=== PATIENT | female | born 1995 | race Caucasian/White ===

== ENCOUNTER 2019-03-28 08:49 | Emergency (ER) | payer OTHER ==
[2019-03-28] MEDS ORDERED: NORMAL SALINE 1000 ML 1,000 ML IV ONE (09:32)
[2019-03-28] MEDS ORDERED: KETOROLAC TROMETHAMINE INJ/PF 30 MG/1 ML SDV IV ONE (09:35)
[2019-03-28 10:09] LABS: APPEARANCE,URINE CLEAR; BILIRUBIN,URINE NEGATIVE (NEGATIVE); COLOR,URINE YELLOW; GLUCOSE, URINE NEGATIVE (NEGATIVE); KETONES,URINE 20 mg/dL (NEGATIVE); LEUKOCYTE ESTERASE,URINE NEGATIVE (NEGATIVE); NITRITE,URINE NEGATIVE (NEGATIVE); PROTEIN,URINE NEGATIVE (NEGATIVE); URINE SPECIFIC GRAVITY 1.018; UROBILINOGEN,URINE NEGATIVE mg/dL (<2.0)
[2019-03-28 10:16] LABS: HEMATOCRIT 41.1 % (36.0-47.0); HEMOGLOBIN 13.9 g/dL (12.0-15.5); MEAN CORPUSCULAR HEMOGLOBIN 29.7 pg (27.0-33.4); MEAN CORPUSCULAR HGB CONC 33.9 g/dL (32.0-36.0); MEAN CORPUSCULAR VOLUME 88 fl (80-97); PLATELET COUNT 184 10^3/uL (150-450); RED BLOOD COUNT 4.69 10^6/uL (3.72-5.28); RED CELL DISTRIBUTION WIDTH 13.5 % (11.5-14.0)
[2019-03-28 10:34] LABS: ABSOLUTE LYMPHOCYTES# (MANUAL) 0.5 10^3/uL (0.5-4.7); ABSOLUTE MONOCYTES # (MANUAL) 0.9 10^3/uL (0.1-1.4); ABSOLUTE NEUTROPHILS# (MANUAL) 8.6 10^3/uL (1.7-8.2); BAND NEUTROPHILS % (MANUAL) 2 % (3-5); BASOPHILS % (MANUAL) 0 % (0-2); EOSINOPHILS % (MANUAL) 0 % (0-6); LYMPHOCYTES % (MANUAL) 4 % (13-45); MONOCYTES % (MANUAL) 9 % (3-13); PLATELET COMMENT ADEQUATE; RBC MORPHOLOGY COMMENT NORMO-CYTIC/CHROMIC; SEGMENTED NEUTROPHILS % (MAN) 84 % (42-78); TOTAL CELLS COUNTED 100
[2019-03-28 10:47] LABS: ALANINE AMINOTRANSFERASE 17 U/L (9-52); ALBUMIN 4.6 g/dL (3.5-5.0); ALKALINE PHOSPHATASE 76 U/L (38-126); ANION GAP 16 (5-19); ASPARTATE AMINO TRANSFERASE 23 U/L (14-36); BILIRUBIN,DIRECT 0.3 mg/dL (0.0-0.4); BILIRUBIN,TOTAL 0.8 mg/dL (0.2-1.3); BLOOD UREA NITROGEN 12 mg/dL (7-20); CARBON DIOXIDE 20 mmol/L (22-30); CHLORIDE 104 mmol/L (98-107); GLUCOSE 99 mg/dL (75-110); POTASSIUM 4.4 mmol/L (3.6-5.0); SODIUM 139.9 mmol/L (137-145); TOTAL PROTEIN 8.1 g/dL (6.3-8.2)
--- NOTE | 2019-03-28 12:00 | ER Document Report ---
ED General - General Chief Complaint: Back Pain Stated Complaint: BACK GOLDEN Time Seen by Provider: 03/28/19 09:18 Primary Care Provider: [facility] [NO LOCAL MD] - Follow up as needed Mode of Arrival: Ambulatory Notes: Patient is a 24-year-old female comes emergency room complaining of right hip pain and fever. Patient states that on Monday this past week she was at work and she was sitting on her left leg with her right leg extended down on the floor. She went to get up to go to the bathroom and when she stood up on her right leg she felt a pop or click in her right buttocks. She states she got lightheaded and dizzy and nearly fell. The pain intensified over the course of the rest the afternoon and she had difficulty ambulating so she asked coworkers which she should do any toe to go to a chiropractor. She went to a chiropractor on Monday and he did x-rays and did an adjustment on her and stated that her alignment looked okay but she probably tore a muscle in that area. She went back this morning for a second adjustment and it was so painful she was unable to handle the full treatment. Because overnight she also spiked a fever and she had a sore throat she decided to come to the emergency room. Patient complained also of headache. Patient denies any loss of urine or stool she denies any back pain. Her pain is solely in her right buttocks. Patient also informed me that she is on Depo-Provera and has not had a. Since she stopped the Depakote in September. She also informs me that she has had strep pharyngitis 3 times this year. TRAVEL OUTSIDE OF THE [place] IN LAST 30 DAYS: No - HPI Onset: Other - 3 days ago Onset/Duration: Sudden, Persistent, Worse Quality of pain: Burning, Cramping, Sharp, Stabbing, Throbbing Severity: Severe Pain Level: 4 Associated symptoms: Body/muscle aches, Earache, Fever, Nausea, Sore throat Exacerbated by: Supine, Sitting, Standing, Movement, Walking, Coughing, Deep breathing, Food Relieved by: Denies Similar symptoms previously: Yes Recently seen / treated by doctor: Yes - Related Data Allergies/Adverse Reactions: No Known Allergies Allergy (Verified 03/28/19 09:01) Past Medical History - General Information source: Patient - Social History Smoking Status: Never Smoker Cigarette use (# per day): No Chew tobacco use (# tins/day): No Smoking Education Provided: No Frequency of alcohol use: None Drug Abuse: None Lives with: Family Family History: Reviewed & Not Pertinent Patient has suicidal ideation: No Patient has homicidal ideation: No Renal/ Medical History: Denies: Hx Peritoneal Dialysis Review of Systems - Review of Systems Constitutional: See HPI, Chills, Fever, Weakness EENT: See HPI, Throat pain, Difficulty swallowing Cardiovascular: No symptoms reported Respiratory: No symptoms reported Gastrointestinal: No symptoms reported Genitourinary: No symptoms reported Female Genitourinary: No symptoms reported Musculoskeletal: See HPI, Back pain, Neck pain Skin: See HPI, Change in color Hematologic/Lymphatic: Enlarged lymph nodes, Swollen glands Neurological/Psychological: No symptoms reported -: Yes All other systems reviewed and negative Physical Exam - Vital signs Vitals: Temp Pulse Resp BP Pulse Ox 98.9 F 100 22 H 149/75 H 100 03/28/19 09:00 03/28/19 09:00 03/28/19 09:00 03/28/19 09:00 03/28/19 09:00 Interpretation: Hypertensive - Notes Notes: PHYSICAL EXAMINATION: GENERAL: Patient is a well-nourished well-developed 24-year-old female is in no apparent distress on physical exam today however she appears very teary and anxious showing moderate amount of pain and discomfort. HEAD: Atraumatic, normocephalic. EYES: Pupils equal round and reactive to light, extraocular movements intact, conjunctiva are normal. ENT: Examination patient's head and upper airway showed nasal mucosa to be erythematous and edematous with no rhinorrhea or congestion noted at this time. She displays no frontal maxillary sinus tenderness to palpation. Bilateral TMs appear normal with no air-fluid levels noted no retraction or bulging noted. Examination of the oral cavity shows posterior pharynx to show moderate amount of erythema bilateral tonsils are enlarged with exudate noted on each. Uvula is midline with erythema but no exudate. Airway is patent and there is no encroachment upon the uvula at this time. NECK: Normal range of motion. No meningismus. She does display moderate amount of bilateral anterior cervical lymphadenopathy to palpation. LUNGS: Breath sounds clear to auscultation bilaterally and equal. No wheezes rales or rhonchi. HEART: Regular rate and rhythm without murmurs emale : deferred Musculoskeletal: Examination patient's area of concern is her right buttocks. There is palpable discomfort on the right buttocks and the upper portion of the glue. There is no defect felt on palpation. There is straight leg raise positive when pressure is applied over the gluteus zeny. Further exploration and examination of the lumbar spine area shows no reproducible pain or tenderness. This extends from mid thoracic down patient has no tenderness. She has full range of motion without any deficits. She has bilateral normal DTRs. And her vascular exam is normal. NEUROLOGICAL: Normal speech, normal gait. Normal sensory, motor exams PSYCH: Normal mood, normal affect. SKIN: Warm, Dry, normal turgor, no rashes or lesions noted. Course - Re-evaluation Re-evalutation: 03/28/19 12:00 Patient's exam did not lead me into any area of structural problems. She had no fall and no signs or symptoms of a sciatic presentation. She had tenderness to palpation on the right gluteus zeny area. This is totally reproducible with palpation as well as resistance in different directions. Her presentation with headache and fever and a little neck discomfort and also did not lend itself to the picture of a meningitis kind of presentation. Oral examination showed the culprit of her fever and her headache which is a strep pharyngitis. She has a history that is escalating itself over the past year to the this will be her fourth time she has had strep pharyngitis. I have informed her she needs to follow-up with a surgeon at this point and see if she can have them removed. We will place her on amoxicillin 875 twice daily for 20 tablets[address] also place her on a low steroid taper secondary to the swelling of the tonsils. There is no airway compromise at this time. - Vital Signs Vital signs: Temp Pulse Resp BP Pulse Ox 99.0 F 104 H 18 118/61 97 03/28/19 14:10 03/28/19 14:10 03/28/19 14:10 03/28/19 14:10 03/28/19 14:10 - Laboratory Result Diagrams: 03/28/19 10:00 03/28/19 10:00 Laboratory results interpreted by me: 03/28/19 03/28/19 03/28/19 09:50 10:00 10:00 Seg Neuts % (Manual) 84 H Band Neutrophils % 2 L Lymphocytes % (Manual) 4 L Abs Neuts (Manual) 8.6 H Carbon Dioxide 20 L Urine Ketones 20 H Discharge - Discharge Clinical Impression: Strep throat, Muscle tear Strain of right hip Qualifiers: Encounter type: initial encounter Qualified Code(s): S76.011A - Strain of muscle, fascia and tendon of right hip, initial encounter Condition: Stable Disposition: HOME, SELF-CARE Instructions: Acetaminophen, Ice Packs ([facility]), Muscle Strain ([facility]), Oral Narcotic Medication ([facility]), Strep Throat ([facility]) Additional Instructions: Home and rest. Ice to the area 3 times a day as we discussed. Tylenol alternate with ibuprofen for pain and fever. Of also written for little pain medication and a muscle relaxer. Light stretching also as we discussed. I would stay with him a chiropractor at least for the next week. Should you have any concerns or problems return to ER for recheck. Use warm salt water gargles 3-4 times a day. Follow-up with a surgeon for evaluation since this is a fourth time with strep throat this year. Prescriptions: Amoxicillin Trihydrate [Amoxil 875 mg Tablet] 1 tab PO BID #20 tablet Cyclobenzaprine HCl [Flexeril 10 mg Tablet] 10 mg PO TID PRN #21 tablet PRN Reason: Fluconazole [Diflucan] 150 mg PO ONCE PRN #1 tablet PRN Reason: Prednisone 5 mg PO ASDIR PRN 6 Days #1 tab.ds.pk PRN Reason: Forms: Elevated Blood Pressure, Return to Work Referrals: [facility] [NO LOCAL MD] - Follow up as needed
[2019-03-28] MEDS ORDERED: IBUPROFEN 600 MG TABLET PO ONE (12:37)
[2019-03-28] MEDS ORDERED: ACETAMINOPHEN 325 MG TABLET PO ONE (12:37)
[2019-03-28 14:12] VITALS: BP 118/61
== END 2019-03-28 14:24 | disposition home or self-care (01) ==
LOC: ER 08:49
DX: S76.011A Strain of muscle, fascia and tendon of right hip, initial encounter (principal); J02.0 Streptococcal pharyngitis; M54.9 Dorsalgia, unspecified; R50.9 Fever, unspecified; R42 Dizziness and giddiness; R11.0 Nausea; X58.XXXA Exposure to other specified factors, initial encounter; Y99.0 Civilian activity done for income or pay
CPT/HCPCS: 99283; 96361; 96374; 36415; 87880; 85025; 81025; 86308; 80053; 81001; J1885; J7030